=== PATIENT | female | born 1940 | race Caucasian/White ===

== ENCOUNTER 2021-03-07 10:05 | Outpatient (CLI) | payer MEDICARE, BC ==
[2021-03-07 14:18] LABS: BASOPHILS # (AUTO) 0.1 10^3/uL (0.0-0.1); BASOPHILS % (AUTO) 1.4 %; EOSINOPHILS # (AUTO) 0.1 10^3/uL (0.0-0.7); EOSINOPHILS % (AUTO) 1.1 %; HCT - HEMATOCRIT 48.1 % (37.0-47.0); HGB - HEMOGLOBIN 15.6 g/dL (12.0-16.0); LYMPHOCYTES # (AUTO) 1.9 10^3/uL (1.5-3.5); LYMPHOCYTES % (AUTO) 23.1 %; MEAN CORPUSCULAR HEMOGLOBIN 29.7 pg (27.0-31.0); MEAN CORPUSCULAR HGB CONC 32.4 g/dL (32.0-36.0); MEAN CORPUSCULAR VOLUME 91.6 fL (81.0-99.0); MEAN PLATELET VOLUME 10.4 fL (7.9-10.8); MONOCYTES # (AUTO) 0.8 10^3/uL (0.0-1.0); MONOCYTES % (AUTO) 10.1 %; NEUTROPHILS # (AUTO) 5.3 10^3/uL (1.5-6.6); NEUTROPHILS % (AUTO) 64.1 %; PLT - PLATELET COUNT 343 10^3/uL (130-450); RED BLOOD COUNT 5.25 10^6/uL (4.20-5.40); RED CELL DISTRIBUTION WIDTH 13.4 % (12.0-15.0); WHITE BLOOD COUNT 8.3 x10^3/uL (4.8-10.8)
[2021-03-07 14:53] LABS: ALBUMIN 4.4 g/dL (3.2-5.5); ALBUMIN/GLOBULIN RATIO 1.8 (1.0-2.2); ALKALINE PHOSPHATASE 47 IU/L (42-121); ALT ALANINE AMINOTRANSFERASE 38 IU/L (10-60); AST ASPARTATE AMINOTRANSFERASE 25 IU/L (10-42); BILIRUBIN,TOTAL 1.2 mg/dL (0.2-1.0); BUN - BLOOD UREA NITROGEN 28 mg/dL (6-20); CALCIUM 9.6 mg/dL (8.5-10.3); CARBON DIOXIDE - CO2 28 mmol/L (21-32); CHLORIDE 105 mmol/L (101-111); CHOLESTEROL 272 mg/dL; CREATININE 0.6 mg/dL (0.4-1.0); GFR - MDRD 96 (>89); GLUCOSE 94 mg/dL (70-100); HDL CHOLESTEROL 91 mg/dL; LDL CHOLESTEROL,CALCULATED 167 mg/dL; LDL/HDL RATIO 1.8 (<4.4); SODIUM 142 mmol/L (135-145); TOTAL PROTEIN 6.9 g/dL (6.7-8.2); TRIGLYCERIDES 68 mg/dL; VLDL CHOLESTEROL 14 mg/dL
[2021-03-07 14:56] LABS: THYROID STIMULATING HORMONE 2.53 uIU/mL (0.34-5.60)
== END 2021-03-07 10:06 | disposition home or self-care (01) ==
LOC: LAB.S 10:05
PROVIDERS: ATTEND Registered Nurse
DX: Z79.899 Other long term (current) drug therapy (principal)
CPT/HCPCS: 36415; 80053; 80061; 83721; 84443; 85025

== ENCOUNTER 2021-03-20 08:56 | Outpatient (CLI) | payer MEDICARE, BC ==
--- NOTE | 2021-03-21 13:45 | Mammography Report ---
BILATERAL DIGITAL SCREENING MAMMOGRAM 3D/2D WITH EXAGGERATED CC: 03/20/2021 CLINICAL: Routine screening. Comparison is made to exam dated: 01/22/2008 mammogram - Unknown. The tissue of both breasts is pred ominantly fatty. No significant masses, calcifications, or other findings are seen in either breast. There has been no significant interval change. IMPRESSION: NEGATIVE There is no mammographic evidence of malignancy. A 1 year screening mammogram is recommended. This exam was interpreted at Station ID: [id number]. NOTE: For mammograms, a report in lay terms will be sent to the patient. Approximately 15% of breast malignancies will not be visualized mammographically. In the management of a palpable breast mass, a negative mammogram must not discourage biopsy of a clinically suspicious lesion. Electronically Signed By: Rafael Little M.D., jr/adelso:03/20/2021 10:01:57 ACR BI-RADS Category 1: Negative 3341F PARENCHYMAL PATTERN: (F) - The breast(s) demonstrate(s) diffuse fatty replacement. BI-RADS CATEGORY: (1) - 1 RECOMMENDATION: (ANNUAL) - Recommend routine annual screening mammography. [id number] 1 year screening LATERALITY: (B)
== END 2021-03-20 08:57 | disposition home or self-care (01) ==
LOC: DI.S 08:56
PROVIDERS: ATTEND Registered Nurse
DX: Z12.31 Encounter for screening mammogram for malignant neoplasm of breast (principal)

== ENCOUNTER 2021-06-02 08:00 | Outpatient (CLI) | payer MEDICARE, BC ==
[2021-06-02 15:49] LABS: BILIRUBIN,URINE NEGATIVE (NEGATIVE); GLUCOSE, URINE (UA) NEGATIVE (NEGATIVE); KETONES,URINE (UA) NEGATIVE (NEGATIVE); LEUKOCYTE ESTERASE, URINE NEGATIVE (NEGATIVE); NITRITE,URINE NEGATIVE (NEGATIVE); OCCULT BLOOD,URINE NEGATIVE (NEGATIVE); PH,URINE 6.5 PH (5.0-7.5); PROTEIN,URINE NEGATIVE (NEGATIVE); UROBILINOGEN,URINE 0.2 (NORMAL) E.U./dL (NORMAL)
[2021-06-02 15:55] LABS: CLARITY,URINE CLEAR (CLEAR)
[2021-06-02 16:05] LABS: BACTERIA,URINE None Seen /HPF (None Seen); RBC,URINE 0-5 /HPF (0-5); SQUAMOUS EPITHELIAL CELL,UR NONE SEEN (<= Few); WBC,URINE 0-3 /HPF (0-5)
== END 2021-06-02 23:59 | disposition home or self-care (01) ==
LOC: LAB.S 08:00
PROVIDERS: ATTEND Physician Assistant Medical
DX: N32.89 Other specified disorders of bladder (principal); M54.9 Dorsalgia, unspecified
CPT/HCPCS: 81001; 87086

== ENCOUNTER 2021-06-19 12:31 | Outpatient (CLI) | payer MEDICARE, BC ==
--- NOTE | 2021-06-20 09:30 | DEXA Report ---
PROCEDURE: Dexa Spine and/or Hip INDICATIONS: COMPRESSION FRACTURE OF LUMBAR VERTEBRA W/ROUTINE TECHNIQUE: Dual energy x-ray absorptiometry (DXA) was performed on a [employer] System. Regions measur ed are the AP Spine, femoral neck, and if needed forearm. COMPARISON: None. FINDINGS: Lumbar Spine: Bone Mineral Density 0.667 g/cm/cm,T score -4.3, osteoporosis. Left Hip: Bone Mineral Density 0.594 g/cm/cm,T score -3.3, osteoporosis. Left Femoral Neck: Bone Mineral Density 0.588 g/cm/cm, T score -3.2, osteoporosis. (T score greater or equal to -1.0: NORMAL) (T score from -1.1 to -2.4: OSTEOPENIA) (T score less than or equal to -2.5 to: OSTEOPOROSIS) Impression: 1. Osteoporosis demonstrated in the lumbar spine and left hip. Patients with diagnosis of osteoporosis or osteopenia should have regular bone mineral density assess ment. For those eligible for Medicare, routine testing is allowed once every 2 years. Testing frequ ency can be increased for patients who have rapidly progressing disease or for those who are receivin g medical therapy to restore bone mass. Reviewed by: Sukhjinder Ha MD on 06/20/2021 9:29 AM PST Approved by: Sukhjinder Ha MD on 06/20/2021 9:29 AM PST Station ID: [id number]
== END 2021-06-19 12:32 | disposition home or self-care (01) ==
LOC: DI 12:31
PROVIDERS: ATTEND Registered Nurse
DX: M81.0 Age-related osteoporosis without current pathological fracture (principal); Z78.0 Asymptomatic menopausal state

== ENCOUNTER 2022-01-24 08:00 | Outpatient (CLI) | payer MEDICARE, BC | END 2022-01-24 23:59 | disposition home or self-care (01) | LOC: LAB.S 08:00 | PROVIDERS: ATTEND Physician Assistant Medical | DX: R31.9 Hematuria, unspecified (principal); R39.15 Urgency of urination | CPT/HCPCS: 87086; 87181 ==

== ENCOUNTER 2023-01-09 17:15 | Outpatient (CLI) | payer MEDICARE, BC ==
--- NOTE | 2023-01-10 09:51 | XRAY Report ---
PROCEDURE: Thoracic Spine 3 View INDICATIONS: THORACIC BACK PAIN TECHNIQUE: 3 views of the thoracic spine were acquired. COMPARISON: None. FINDINGS: Bones: No fractures or dislocations. No suspicious bony lesions. 12 pairs of ribs are noted, and a ppear intact where visualized. Diffusely decreased osseous mineralization. Levoscoliotic changes of t he lower thoracic spine. Mpny-xt-yweryzyt compression deformities of a mid and a lower thoracic verte bral body. Multilevel disc height loss with degenerative endplate changes and mild marginal spurring. Soft tissues: No paravertebral stripe thickening. IMPRESSION: Degenerative changes of the thoracic spine with levoscoliotic curvature of the lower thoracic spine. Diffusely decreased osseous mineralization with mild to moderate compression deformities of a mid and a lower thoracic vertebral body. This is of unclear chronicity. Recommend correlation with point ten deramaris and consider MRI if clinically indicated. Reviewed by: John Hurtado MD on 01/10/2023 9:49 AM PDT Approved by: John Hurtado MD on 01/10/2023 9:49 AM PDT Station ID: [id number]
== END 2023-01-09 23:59 | disposition home or self-care (01) ==
LOC: DI.S 17:15
PROVIDERS: ATTEND Nurse Practitioner
DX: M80.08XA Age-related osteoporosis with current pathological fracture, vertebra(e), initial encounter for fracture (principal)

== ENCOUNTER 2023-01-14 12:46 | Emergency (ER) | payer MEDICARE, BC ==
--- NOTE | 2023-01-14 15:14 | ED Physician Documentation ---
PD HPI BACK PAIN - Stated complaint Stated Complaint: MID BACK SPASM - Chief complaint Chief Complaint: Back Pain - History obtained from History obtained from: Patient - History of Present Illness Timing - onset: How many weeks ago (1) Timing - duration: Weeks (1) Timing - details: Abrupt onset (abrupt as in over course of part of a day, but not acutely abrupt. Had been gardening earlier in day, but no fall/impact injury nor abrupt severity. Has had increased pain through several days and more the past 2-3 days despite Rx meds of tramadol and robaxin from [facility].) Location: Mid, Other (she says the pain wraps around both sides of lower ribs/uper abd.) Quality: Pain, Spasm Associated symptoms: No: Fever, Weakness, Numbness, Incontinent of urine Improves with: Position (lying on back is best, side hurts more.). No: Meds Worsened by: Movement, Twisting Contributing factors: Lifting, Twisting Similar symptoms before: Diagnosis (she states has had similar in the fast after a fall and had T12/L1 compression fractures. Still with chronic pain in that area. Current pain is higher and different.) Recently seen: Clinic (wal in clinic few days ago with t-spine xray showing compressionf ractures in known place and also one in mid thoracic. Was Rx tramadol and robaxin but has not had any improvement from these.) Review of Systems Constitutional: denies: Fever, Chills, Myalgias Cardiac: denies: Chest pain / pressure, Palpitations Respiratory: denies: Dyspnea, Cough GI: denies: Abdominal Pain, Vomiting, Diarrhea Skin: denies: Rash, Lesions Neurologic: denies: Focal weakness, Numbness PD PAST MEDICAL HISTORY - Past Medical History Musculoskeletal: Osteoporosis, Chronic back pain (from prior TL compression fractures.) - Present Medications Home Medications: Ambulatory Orders Medication Instructions Recorded Confirmed Calcitonin [Fortical] 1 sprays CHAPITO DAILY #1 each 01/14/23 Oxycodone HCl/Acetaminophen 1 each PO Q4H PRN #25 tablet 01/14/23 [Percocet 5-325 mg Tablet] dexAMETHasone [Decadron] 4 mg PO DAILY #5 tablet 01/14/23 methocarbamoL [Methocarbamol] 500 mg PO DAILY 01/14/23 01/14/23 traMADol [Ultram] 50 mg PO ONCE 01/14/23 01/14/23 - Allergies Allergies/Adverse Reactions: Allergies Allergy/AdvReac Type Severity Reaction Status Date / Time Sulfa (Sulfonamide Allergy Rash Verified 01/14/23 12:50 Antibiotics) PD ED PE NORMAL - Vitals Vital signs reviewed: Yes - General General: Alert and oriented X 3, Well developed/nourished, Other (appears in pain and walking with assistance and stiffly. ) - Cardiac Cardiac: RRR, No murmur - Respiratory Respiratory: No respiratory distress, Clear bilaterally - Abdomen Abdomen: Soft, Non tender - Back Back: Other (tender mid thoracic but not as much midline as laterally both sides. ) - Derm Derm: Normal color, Warm and dry, No rash (no noted rash nor vesicles in pain area around chest) - Neuro Neuro: Alert and oriented X 3, No motor deficit, No sensory deficit, Normal speech Results - Vitals Vitals: Vital Signs - 24 hr 01/14/23 01/14/23 12:50 18:58 Temperature 36.5 C Heart Rate 88 90 Respiratory 16 20 Rate Blood Pressure 150/90 H 154/92 H O2 Saturation 98 99 Oxygen O2 Source Room air - Rads (name of study) chest and thoracic CT Relevant Findings:: Prelim report reviewed (chronic T8, T11, T12 compression fractures. No other acute process in chest. ), EMP independent interpretation of test (Compression fractures with calcific anterior ligaments and spurring c/w chronic. T9 compression without sclerosis, age uncertain. ) PD Medical Decision Making - ED course Complexity details: reviewed old records (thoracic spine xray from outpt days ago showing T12/L1 compression fx with sclerotic anteriorly c/w only. T8 or T9 compression fx, age indeterminant.), reviewed results (CT chest and T spine with known prior T11 or T12 and L1 fractures. T8 compression of unknown chronicity, but pt not aware of it from the past, so presume new.), re-evaluated patient (pain much improved with IV meds Toradol, Dilaudid, decadron and Diltiazem for spasms. She had had steroid with prior back injury and said worked well, so we agreed on short course. She said she did not want muscle relaxant. ), considered differential (onset mid thoracic pain radiating around to sides of ribs/upper abd a week ago after gardening. Not abrupt onset but later in evening and continued worsening. ), d/w patient ED course: patient states she has appt with PMD this week, and has referral to back specialist already through PMD. Departure - Departure Disposition: 01 Home, Self Care Clinical Impression: Mid-back pain, acute, Thoracic compression fracture Condition: Stable Record reviewed to determine appropriate education?: Yes Instructions: ED Fx Comp Vertebral Follow-Up: Arsen Martinez MD [Primary Care Provider] - Prescriptions: dexAMETHasone [Decadron] 4 mg PO DAILY #5 tablet Calcitonin [Fortical] 1 sprays CHAPITO DAILY #1 each Oxycodone HCl/Acetaminophen [Percocet 5-325 mg Tablet] 1 each PO Q4H PRN #25 tablet PRN Reason: pain Comments: Your CT scan showed a compression fracture at T8 in addition to the previous known ones at T12 and L1. I presume the T9 compression is newer and causing your acute pain. The nerve roots and ribs from that area would wraparound to the areas that are hurting you in the lower chest area. I presume that is the cause of the pain there. The CT scan did not show other obvious acute abnormalities in the chest. Follow-up with your primary care as planned in the back surgeon/specialist. Meanwhile we can treat this with continuing some anti-inflammatories. In the initially we could use a steroid anti-inflammatory as you had suggested or talked about earlier. We can do this for several days. Then resume the ibuprofen/Motrin 2-3 times daily with food. Add Percocet every 4-6 hours if needed for worse pain. Calcitonin nasal spray also helps with reducing the degree of pain and hastening healing to some degree for compression fractures. I wrote a prescription for that as well. 1 spray daily alternating nostrils. I sent your prescriptions to [facility] in [place]. I am prescribing a short course of narcotic pain medication for you. These are potentially dangerous and addictive medications that should be used carefully. These medications may constipate you. Take an fyaw-sge-sytuzia stool softener such as docusate twice daily with plenty of water while taking these medications. If you go 24 hours without a bowel movement, take oais-zyf-suwgjjp MiraLAX, per package instructions. Do not drink or drive while taking these medications. If you received narcotic or sedating medications while in the emergency department do not drive for 24 hours. Store this medication in a safe, secure place and out of reach of children. It is a violation of federal law to give or sell this medication to another person or to use in a manner other than prescribed. The ED will not refill narcotic prescriptions, including prescriptions lost or stolen. You can dispose of unwanted medications at the [facility] office or at several pharmacies such as [facility]. Discharge Date/Time: 01/14/23 18:59
[2023-01-14] MEDS ORDERED: KETOROLAC 15 MG/ML VIAL IVP STA (15:50)
[2023-01-14] MEDS ORDERED: DEXAMETHASONE 10 MG/ML VIAL IVP STA (15:50)
[2023-01-14] MEDS ORDERED: HYDROmorphone 0.5 MG/0.5 ML SYRINGE IVP STA (15:50)
[2023-01-14] MEDS ORDERED: diazePAM INJ 5 MG/ML SYRINGE IVP STA (15:54)
[2023-01-14] MEDS ORDERED: oxyCODONE/ACET 5/325 Prepack 4 PO STA (18:05)
--- NOTE | 2023-01-14 18:33 | CT Report ---
PROCEDURE: THORACIC SPINE WO INDICATIONS: mid thoracic back pain after gardening TECHNIQUE: Noncontrast 3 mm thick sections acquired through the region of interest in the thoracic spine. Sagit kath and coronal reformats were then constructed. For radiation dose reduction, the following was used : automated exposure control, adjustment of mA and/or kV according to patient size. COMPARISON: 3 thoracic spine, 01/09/2023. FINDINGS: Image quality: Excellent. Bones: Pectus excavatum. There is moderate levoscoliosis with apex at T11. Normal overall bony align ment. Generalized osteopenia. There are vertebral body compression fractures, moderate-12 and severe at T8, and and moderate at T11 . Mild/moderate degenerative disc and facet disease. No suspicious sclerotic or lytic bony lesions. Ce ntral spinal canal is of normal overall caliber. Soft tissues: No paravertebral masses or hematomas. Trace right pleural effusion with bibasilar depe ndent atelectasis. IMPRESSION: 1. Chronic compression fractures at T8 and T11 of indeterminate chronicity. Consider nonemergent MRI for follow-up evaluation. The patient may benefit from vertebroplasty. 2. Ypacgqmk-ro-nakyqotk degenerative disc and facet disease. 3. Scoliosis. 4. Pectus excavatum. 5. There is generalized osteopenia. Reviewed by: Nazario Cr MD on 01/14/2023 6:32 PM PDT Approved by: Nazario Cr MD on 01/14/2023 6:32 PM PDT Station ID: [id number]
--- NOTE | 2023-01-14 18:47 | CT Report ---
PROCEDURE: CHEST WO INDICATIONS: lower thoracic pain after gardening TECHNIQUE: Noncontrast 1mm axial images were acquired from the pulmonary apices to the posterior costophrenic an gles. Axial 5 mm soft tissue kernel reconstructions were performed as well as 8 mm axial MIP and cor onal and sagittal 5 mm reformations. For radiation dose reduction, the following was used: automate d exposure control, adjustment of mA and/or kV according to patient size. COMPARISON: CT thoracic spine, 01/14/2023. FINDINGS: Image quality: Excellent. Lungs and pleura: No consolidation. Bilateral lower lobe scars and atelectasis No pleural effusions. No pneumothorax. No suspicious pulmonary nodules which require follow up. Mediastinum: Heart size is mildly enlarged. Small pericardial effusion. No large vessel abnormality. No mediastinal adenopathy by size criteria. Chest wall and lower neck: Pectus excavatum. Thyroid is unremarkable. No axillary or supraclavicular adenopathy by size. Bones: No aggressive osseous abnormality. Scoliosis and degenerative changes since thoracic spine. Mi ld compression fracture of T8 (qsnkvgxd-vd-oqxguy) and T11 (moderate). Upper Abdomen: Unremarkable. IMPRESSION: 1. Mild cardiomegaly and small pericardial effusion. 2. Pectus is compartment. 3. Bilateral lower lobe scars and atelectasis. 4. Lneqdzpv-nh-rxnimt compression fracture of T8 and moderate compression fracture of T11. Please see separate thoracic spine CT report. Reviewed by: Nazario Cr MD on 01/14/2023 6:46 PM PDT Approved by: Nazario Cr MD on 01/14/2023 6:46 PM PDT Station ID: [id number]
[2023-01-14 19:03] VITALS: BP 154/92; O2SAT 99
== END 2023-01-14 18:59 | disposition home or self-care (01) ==
LOC: ED 12:46
DX: S22.000A Wedge compression fracture of unspecified thoracic vertebra, initial encounter for closed fracture (principal); X58.XXXA Exposure to other specified factors, initial encounter
CPT/HCPCS: 71250; 72128; 96374; 96375; 99284; 99285; J1170

== ENCOUNTER 2024-02-01 14:54 | Outpatient (CLI) | payer MEDICARE, BC | END 2024-02-01 23:59 | disposition critical access hospital (66) | LOC: EMS 14:54 | DX: M25.511 Pain in right shoulder (principal); W18.39XA Other fall on same level, initial encounter; Y93.89 Activity, other specified; Y92.009 Unspecified place in unspecified non-institutional (private) residence as the place of occurrence of the external cause | CPT/HCPCS: A0425; A0427 ==

== ENCOUNTER 2024-02-01 15:26 | Emergency (ER) | payer MEDICARE, BC ==
--- NOTE | 2024-02-01 15:54 | ED Physician Documentation ---
History of Present Illness - Stated complaint Stated Complaint: R SHOULDER INJ/GLF - Chief complaint Chief Complaint: Ext Problem - Additonal information Additional information: 84-year-old female with no pertinent past medical history presents emergency department for right arm pain. Patient says that she has ongoing chronic balance issues and unfortunately lost her balance today which is not abnormal for her and she fell onto her right shoulder. She said that she is noticing immediate shoulder pain and having difficulty with abduction. She says that she did not hit her head she had no loss of consciousness and she is not any blood thinners. PD PAST MEDICAL HISTORY - Past Medical History Past Medical History: Yes Musculoskeletal: Osteoporosis, Chronic back pain - Past Surgical History Past Surgical History: Yes Ortho: Other - Present Medications Home Medications: Ambulatory Orders Medication Instructions Recorded Confirmed Calcitonin [Fortical] 1 sprays CHAPITO DAILY #1 each 01/14/23 Oxycodone HCl/Acetaminophen 1 each PO Q4H PRN #25 tablet 01/14/23 [Percocet 5-325 mg Tablet] dexAMETHasone [Decadron] 4 mg PO DAILY #5 tablet 01/14/23 methocarbamoL [Methocarbamol] 500 mg PO DAILY 01/14/23 01/14/23 traMADol [Ultram] 50 mg PO ONCE 01/14/23 01/14/23 oxyCODONE [Roxicodone] 5 mg PO Q4-6H PRN #10 tablet 02/01/24 - Allergies Allergies/Adverse Reactions: Allergies Allergy/AdvReac Type Severity Reaction Status Date / Time Sulfa (Sulfonamide Allergy Rash Verified 02/01/24 15:30 Antibiotics) - Social History Does the pt smoke?: No Smoking Status: Never smoker Does the pt drink ETOH?: No Does the pt have substance abuse?: No PD ED PE NORMAL - Vitals Vital signs reviewed: Yes - General General: Alert and oriented X 3, No acute distress, Well developed/nourished - HEENT HEENT: Atraumatic, PERRL, EOMI - Neck Neck: No bony TTP - Cardiac Cardiac: RRR - Respiratory Respiratory: No respiratory distress, Clear bilaterally - Derm Derm: Normal color, Warm and dry, No rash - Extremities Extremities: Other (RUE: tenderness to the lateral shoulder region, no brusing, mild swelling, no obvious deformity. difficulty with ROM d/t tenderness, strong radial pulse) Results - Vitals Vitals: Vital Signs - 24 hr 02/01/24 02/01/24 02/01/24 15:31 17:33 18:11 Temperature 36.9 C 36.6 C Heart Rate 81 80 82 Heart Rate [ Sitting] Heart Rate [ Standing] Respiratory 15 16 20 Rate Blood Pressure 162/88 H 150/86 H 53/37 L Blood Pressure [Sitting] Blood Pressure [Standing] O2 Saturation 95 96 94 02/01/24 02/01/24 02/01/24 18:53 19:34 19:36 Temperature Heart Rate 71 80 Heart Rate [ 80 Sitting] Heart Rate [ 85 Standing] Respiratory 15 16 Rate Blood Pressure 177/98 H 160/89 H Blood Pressure 160/89 H [Sitting] Blood Pressure 147/86 H [Standing] O2 Saturation 96 94 Oxygen O2 Source Room air - Rads (name of study) 2 view right shoulder x-ray Relevant Findings:: Final report received, EMP independent interpretation of test, Other (Proximal humeral fracture with foreshortening) PD Medical Decision Making - ED course ED course: 84-year-old female presents emergency department for right shoulder pain after loss of balance. Patient denies any dizziness prior to fall. X-rays were complete for further evaluation which revealed a proximal humeral fracture with foreshortening. Pain is well-controlled with oxycodone and Tylenol. As you are getting ready to discharge patient she had significant hypotension unsure if the blood pressure cuff was in the correct spot systolic blood pressure was in the 50s diastolic was in the 30s. She received 1 L of IV fluids we rechecked her blood pressure multiple times and verified blood pressure cuff setting and systolic blood pressure was in the 150s. She has no dizziness she is able to ambulate without difficulty patient was placed in a shoulder sling and was told to follow-up with Ortho outpatient. I am prescribing a short course of short-acting opioid pain medication for this patient. 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 I have discussed that the opioids are for short term therapy only, and will not be refilled from the ED. patient understands return precautions all questions answered she is safe for discharge. Departure - Departure Disposition: 01 Home, Self Care Clinical Impression: Humeral fracture Qualifiers: Encounter type: initial encounter Humerus Location: proximal Fracture type: closed Fracture morphology: unspecified fracture morphology Laterality: right Qualified Code(s): S42.201A - Unspecified fracture of upper end of right humerus, initial encounter for closed fracture Instructions: ED Fx Upper Ext Follow-Up: [facility] [Provider Group] Prescriptions: oxyCODONE [Roxicodone] 5 mg PO Q4-6H PRN #10 tablet PRN Reason: Pain >8 Comments: Thank you for trusting us with your care, we have evaluated you for your right shoulder pain after experiencing a ground-level fall. It appears that you have a proximal humeral fracture. We have placed you in a sling as this is the appropriate treatment you can alternate tween the pain medication that you have at home as well as additional 650 mg of Tylenol every 6-8 hours. Do not exceed 4000 mg of Tylenol in a 24-hour period please follow with your primary care provider to let them know about today's ER visit and to follow-up with Ortho outpatient I have attached their contact information on the paperwork. Please return to the emergency department for having difficulty dealing with the pain despite the pain medication that you have at home, dizziness, chest pain, shortness of breath, or any other concerning symptoms. Forms: PCP List Discharge Date/Time: 02/01/24 20:07
[2024-02-01] MEDS: oxyCODONE 5 MG TABLET PO STA (16:30)
[2024-02-01] MEDS: ACETAMINOPHEN 500 MG TABLET PO STA (16:30)
--- NOTE | 2024-02-01 17:05 | XRAY Report ---
PROCEDURE: Shoulder 2+V RT INDICATIONS: rt shoulder pain, limited ROM d/t pain, GLF TECHNIQUE: 3 views of the shoulder were acquired. COMPARISON: None. FINDINGS: Bones: Proximal humeral head/neck fracture with mild foreshortening. No obvious intraventricular ext ension. Fracture line extends to the greater tubercle. Soft tissues: No suspicious soft tissue calcifications. The visualized lungs are within normal limi ts. IMPRESSION: Proximal humeral fracture with foreshortening. Reviewed by: Turner Little MD on 02/01/2024 4:03 PM URBAN Approved by: Turner Little MD on 02/01/2024 4:03 PM URBAN Station ID: [id number]
[2024-02-01] MEDS: HYDROcod/ACET 5/325 Prepack 4 PO STA (17:53)
[2024-02-01] MEDS: SODIUM CHLORIDE 0.9% 1,000 ML IV ONE (18:18)
[2024-02-01 19:36] VITALS: BP 160/89
[2024-02-01 19:46] VITALS: O2SAT 94
== END 2024-02-01 20:07 | disposition home or self-care (01) ==
LOC: EDUNIT# → ED 15:26
DX: S42.201A Unspecified fracture of upper end of right humerus, initial encounter for closed fracture (principal); W18.30XA Fall on same level, unspecified, initial encounter; Z79.899 Other long term (current) drug therapy
CPT/HCPCS: 73030; 96360; 99284; A9270